=== PATIENT | female | born 1965 | race Two or more races ===

== ENCOUNTER 2025-01-25 08:35 | Inpatient (IN) | payer MEDICARE, MEDICAID ==
[2025-01-22 12:37] LABS: Urine Bacteria None Seen /hpf (None Seen)
[2025-01-22 13:06] LABS: Basophils # (auto) 0 10 ^3/uL (0-0.2); Basophils % (auto) 0.6 % (0.0-2.0); Eosinophils # (auto) 0 10 ^3/uL (0-0.8); Eosinophils % (auto) 0.3 % (0.0-7.0); Hemoglobin 14.7 g/dL (12.2-16.2); Lymphocytes # (auto) 1.6 10 ^3/uL (0.4-5.4); Lymphocytes % (auto) 24.6 % (10.0-50.0); Mean Corpuscular Hemoglobin 30.4 pg (28.0-32.0); Mean Corpuscular Hgb Conc. 34.2 g/dL (32.0-36.0); Monocytes # (auto) 0.5 10 ^3/uL (0-1.3); Monocytes % (auto) 8.2 % (0.0-12.0); Neutrophils # (auto) 4.4 10 ^3/uL (1.6-8.6); Neutrophils % (auto) 66.3 % (37.0-80.0); Platelet Count (auto) 193 10^3/uL (140-450); Red Blood Cells 4.83 10^6/uL (4.0-5.20); Red Cell Distribution Width 14.3 % (11.8-14.3); White Blood Cell 6.6 10^3/uL (4.4-10.8)
[2025-01-22 13:13] LABS: Urine Blood 2+ /uL (Negative); Urine Clarity Turbid (Clear); Urine Color Yellow (Yellow); Urine Mucus FEW (None Seen); Urine Protein, UAD TRACE (Negative); Urine Specific Gravity 1.022 (1.001-1.035); Urine Squamous Epithelial Cell FEW /hpf (<5); Urine Urobilinogen Normal (Negative); Urine WBC 1 /HPF (0-5); Urine pH 5.5 (5.0-9.0)
[2025-01-22 13:23] LABS: INR 1.03 (0.9-1.15); Partial Thromboplastin Time 26.3 SEC (24.5-34.5); Prothrombin Time 10.9 sec (9.3-11.8)
[2025-01-22 13:32] LABS: Alanine Aminotransferase 10 U/L (7-40); Albumin 4.8 g/dL (3.2-4.8); Alkaline Phosphatase 66 U/L (46-116); Anion Gap 6 (5-15); Aspartate Aminotransferase 18 U/L (13-40); BUN/Creatinine Ratio 12.2 (10.0-20.0); Blood Urea Nitrogen 11 mg/dL (9-23); Calcium 10.1 mg/dL (8.7-10.4); Carbon Dioxide 29 mmol/L (20-31); Chloride 106 mmol/L (98-107); Glucose 97 mg/dL (74-106); Potassium 4.2 mmol/L (3.5-5.1); Sodium 141 mmol/L (136-145); Total Protein 7.2 g/dL (5.7-8.2)
[2025-01-22 13:33] LABS: Bilirubin, Total 0.5 mg/dL (0.2-1.0)
[~2025-01-25] VITALS: Ht 162.6 cm; Wt 88.2 kg
[~2025-01-25 08:35] MED LIST: CHOL20007 OR; ESCI1TAB36 PO; FELO5TAB6 GT; KEP500T PO; LEVO25TA6 PO; LORA-1123 PO; PROP60CA34 PO; SIMV40TA18 PO; TRAZ-228 PO
[2025-01-25] MEDS ORDERED: SODIUM CHLORIDE LOCK 40 ML ONE (09:55)
[2025-01-25] MEDS ORDERED: ROCURONIUM 10MG/ML 10ML VIAL IV ONE (09:55)
[2025-01-25] MEDS ORDERED: MIDAZOLAM HCL 2MG/2ML 2ml VIAL (1mg/ml) ONE (09:55)
[2025-01-25] MEDS ORDERED: ONDANSETRON HCL 4 MG/2 ML VIAL ONE (09:55)
[2025-01-25] MEDS ORDERED: DexAMETHasone SOD PHOS 10MG/1ML VIAL INJ ONE (09:55)
[2025-01-25] MEDS ORDERED: KETAMINE 50mg/ML 1ml syringe ONE (09:55)
[2025-01-25] MEDS ORDERED: fentaNYL CITRATE 5 ML ONE (09:55)
[2025-01-25] MEDS ORDERED: fentaNYL CITRATE 100 MCG/2 ML VL ONE ×2 (09:55→13:42)
[2025-01-25] MEDS ORDERED: LIDOCAINE 1% INJ PF 5ML AMP ONE (09:55)
[2025-01-25] MEDS ORDERED: HYDROmorphone HCL 2 MG/ML VL/or syr ONE (09:55)
[2025-01-25] MEDS ORDERED: PROPOFOL 10 MG/ML 20 ML IV ONE (09:55)
[2025-01-25] MEDS ORDERED: LIDOCAINE 2% TOPICAL JELLY 5 ML URJT TOP ONE (09:55)
--- NOTE | 2025-01-25 10:44 | DVHHP2 ---
"Admitting Diagnosis: cervical spinal stenosis with myelo-radiculopathy History of Present Illness Home Meds Reported Medications Cholecalciferol (VITAMIN D3) 2,000 Unit Tab, 5000 UNIT OR DAILY, TAB 01/18/25 Trazodone Hcl (Trazodone Hcl) 100 Mg Tab, 50 MG PO HS, TAB 01/18/25 Lorazepam (Lorazepam) 1 Mg Tab, 0.5 MG PO BID, TAB 01/18/25 Levothyroxine Sodium (Levothyroxine Sodium) 25 Mcg Tab, 25 MCG PO DAILY, TAB 01/18/25 Felodipine (Felodipine ER) 5 Mg Tab, 10 MG GT DAILY, TAB 01/18/25 Propranolol Hcl (Inderal La) 60 Mg Cap, 10 MG PO DAILY, CAP 01/18/25 Escitalopram Oxalate (ESCITALOPRAM OXALATE) 10 Mg Tab, 10 MG PO HS, TAB 01/18/25 Simvastatin (Simvastatin) 40 Mg Tab, 40 MG PO DAILY, TAB 01/18/25 Levetiracetam (KEPPRA TABLET) 500 Mg Tb, 750 MG PO BID, TAB 01/18/25 Neck Pain Radiation: Upper extremity Method of Injury/Prior Factors: Unknown Modifying Factors for Neck Ju: Movement Associated Symptoms of Neck Pa: Numbness in upper extremi, Numbness in fingers, Tingling in upper extremi, Tingling in fingers, Sensory loss, Motor loss Review of Systems Constitutional: No symptom reported Ears, Nose, & Throat: No symptom reported Eyes: No symptom reported Pulmonary/Respiratory: No symptom reported Cardiovascular: No symptom reported Gastrointestinal: No symptom reported Genitourinary: No symptom reported Musculoskeletal: No symptom reported Skin: No symptom reported Psychiatric: No symptom reported Endocrine: No symptom reported Hemotologic/Lymphatic: No symptom reported H&P Exam General Appeara: Well developed, Well nourished, Normal Appearance Head Exam: Normal inspection Neck Exam: Normal inspection, Non-tender, Normal alignment Eye Exam: bilateral eye Normal inspection, bilateral eye PERRL, bilateral eye EOMI Ear Exam: bilateral ear Auricle normal, bilateral ear Canal normal, bilateral ear TM normal Nasal Exam: Normal inspection Mouth: Normal Inspection Pulmonary/Respiratory: Normal inspection, Normal breath sounds, Chest non- tender, Lungs clear Cardiovascular/Chest: Normal inspection, Regular rate, Normal Rhythm Abdominal Exam: Normal bowel sounds, Soft, No tenderness, No hepatospenomegaly, No masses Rectal Exam: Normal inspection Back Exam: Normal inspection Pelvic Exam: Not done, External exam normal, Bimanual exam normal, Speculum exam normal Male Genital Exam: Not done Shoulder Exam: Normal inspection, Non-tender, Normal ROM Elbow/Forearm Exam: Normal inspection, Non-tender, Normal ROM Wrist Exam: Normal inspection, Non-tender, Normal ROM Hand Exam: Normal inspection, Non-tender, Normal ROM Hip exam: Normal inspection, Non-tender, Normal range of motion Knees: bilateral knee non-tender, bilateral knee normal inspection, bilateral knee normal range of motion, bilateral knee no evidence of injury Ankle Exam: bilateral ankle Normal inspection, bilateral ankle Non-tender, bilateral ankle Normal range of motion, bilateral ankle No evidence of injury Foot: bilateral foot non-tender, bilateral foot normal inspection, bilateral foot normal range of motion, bilateral foot no evidence of injury Tendon/ Neuro: Motor deficit, Sensory deficit [employer]ESS[employer] Exam: Normal hearing, Normal speech, PERRL Motor/Sensory: Sensory deficit, Weak motor strength RUE, Weak motor strength LUE, Weak motor strength RLE, Weak motor strength LLE Neuro/Mental St: Alert Appearance: Appropriate appearance, Appropriate insight Eye contact/ Speech: Cooperative, Good eye contact, Normal speech Thoughts/Psych: Normal thought pattern Coordination/Gait: Normal finger->nose, Normal gait, Negative Romberg's sign, Abnormal gait Skin Exam: Normal inspection, Normal color, Warm/dry Lymphatic: Normal inspection Labs/Xrays MRI CERVICAL SPINE CLINICAL HISTORY: NECK PAIN AND POPPING. LBP AND LROM. HX- CERVICAL FUSION AND LUMBAR FUSION. NOCA Comparison: None Technique: Multi planar, multi sequence MR images of the cervical spine without intravenous contrast. FINDINGS: There are postsurgical changes with discectomy and interbody hardware fusion at the C5-C6 and C6-C7 levels. There is nonspecific hyperintense T2 signal abnormality in the left cord at the C5-C6 level. The cervical cord demonstrates normal caliber. The visualized posterior fossa contents appear within normal limits. The craniocervical junction appears unremarkable. The cervical vertebral bodies demonstrate normal height and marrow signal. The sagittal alignment is anatomic. There is multilevel disc desiccation. There is disc space narrowing at C4-C5. At C2-C3 there is mild right facet arthropathy. There is no canal or significant foraminal stenosis. At C3-C4 there is mild disc bulge. There is moderate left facet arthropathy. There is no canal stenosis. There is moderate left foraminal stenosis. At C4-C5 there is posterior disc osteophyte complex and bilateral uncovertebral arthropathy. There is mild facet arthropathy. There is no significant spinal canal stenosis. There is moderate to severe left and moderate right foraminal stenosis. At C5-C6 there is anterior and interbody hardware fusion. There is no canal stenosis. There is prominent left uncovertebral spurring resulting in moderate to severe left foraminal stenosis. At C6-C7 there is anterior and interbody hardware fusion. There is bilateral uncovertebral spurring, right- [id number]. There is no canal stenosis. There is moderate right foraminal stenosis. At C7-T1 there is minimal disc bulge without canal or foraminal stenosis. [facility] [id number], [address] [place], [place] [address]LVD CERVICAL SPINE CLINICAL HISTORY: NECK PAIN AND POPPING. LBP AND LROM. HX- CERVICAL FUSION AND LUMBAR FUSION. NOCA Comparison: None Technique: Multi planar, multi sequence MR images of the cervical spine without intravenous contrast. FINDINGS: There are postsurgical changes with discectomy and interbody hardware fusion at the C5-C6 and C6-C7 levels. There is nonspecific hyperintense T2 signal abnormality in the left cord at the C5-C6 level. The cervical cord demonstrates normal caliber. The visualized posterior fossa contents appear within normal limits. The craniocervical junction appears unremarkable. The cervical vertebral bodies demonstrate normal height and marrow signal. The sagittal alignment is anatomic. There is multilevel disc desiccation. There is disc space narrowing at C4-C5. At C2-C3 there is mild right facet arthropathy. There is no canal or significant foraminal stenosis. At C3-C4 there is mild disc bulge. There is moderate left facet arthropathy. There is no canal stenosis. There is moderate left foraminal stenosis. At C4-C5 there is posterior disc osteophyte complex and bilateral uncovertebral arthropathy. There is mild facet arthropathy. There is no significant spinal canal stenosis. There is moderate to severe left and moderate right foraminal stenosis. At C5-C6 there is anterior and interbody hardware fusion. There is no canal stenosis. There is prominent left uncovertebral spurring resulting in moderate to severe left foraminal stenosis. At C6-C7 there is anterior and interbody hardware fusion. There is bilateral uncovertebral spurring, right- [id number]. There is no canal stenosis. There is moderate right foraminal stenosis. At C7-T1 there is minimal disc bulge without canal or foraminal stenosis. [facility] [address], [address] [place] [address] | Confidential information intended for patient chart only Page 2 of 2 IMPRESSION: 1. Postsurgical changes in the cervical spine with discectomy and anterior interbody hardware fusion at the C5- C6 and C6-C7 levels. 2. There is nonspecific hyperintense T2 signal abnormality in the left cervical cord at the C5-C6 level. This May relate to compressive myelomalacia. Demyelinating disease in the appropriate clinical setting is not entirely excluded. 3. Degenerative changes of the unfused levels in the cervical spine as described by levels above. HS: | Confidential information intended for patient chart only Page 2 of 2 IMPRESSION: 1. Postsurgical changes in the cervical spine with discectomy and anterior interbody hardware fusion at the C5- C6 and C6-C7 levels. 2. There is nonspecific hyperintense T2 signal abnormality in the left cervical cord at the C5-C6 level. This May relate to compressive myelomalacia. Demyelinating disease in the appropriate clinical setting is not entirely excluded. 3. Degenerative changes of the unfused levels in the cervical spine as described by levels above. HS: Labs Test 01/22/25 12:25 Range/Units White Blood Count 6.6 4.4-10.8 10^3/uL Red Blood Count 4.83 4.0-5.20 10^6/uL Hemoglobin 14.7 12.2-16.2 g/dL Hematocrit 43.0 36.0-46.0 % Mean Corpuscular Volume 89.0 80.0-100.0 fL Mean Corpuscular Hemoglobin 30.4 28.0-32.0 pg Mean Corpuscular Hemoglobin Concent 34.2 32.0-36.0 g/dL Red Cell Distribution Width 14.3 11.8-14.3 % Platelet Count 193 140-450 10^3/uL Mean Platelet Volume 7.7 6.9-10.8 fL Neutrophils (%) (Auto) 66.3 37.0-80.0 % Lymphocytes (%) (Auto) 24.6 10.0-50.0 % Monocytes (%) (Auto) 8.2 0.0-12.0 % Eosinophils (%) (Auto) 0.3 0.0-7.0 % Basophils (%) (Auto) 0.6 0.0-2.0 % Neutrophils # (Auto) 4.4 1.6-8.6 10 ^3/uL Lymphocytes # (Auto) 1.6 0.4-5.4 10 ^3/uL Monocytes # (Auto) 0.5 0-1.3 10 ^3/uL Eosinophils # (Auto) 0 0-0.8 10 ^3/uL Basophils # (Auto) 0 0-0.2 10 ^3/uL Nucleated Red Blood Cells 0.0 % Prothrombin Time 10.9 9.3-11.8 sec Prothrombin Time INR 1.03 0.9-1.15 Activated Partial Thromboplast Time 26.3 24.5-34.5 SEC Urine Color Yellow Yellow Urine Clarity Turbid H Clear Urine pH 5.5 5.0-9.0 Urine Specific [place] 1.022 1.001-1.035 Urine Protein Trace H Negative Urine Ketones Negative Negative Urine Blood 2+ H Negative /uL Urine Nitrite Negative Negative Urine Bilirubin Negative Negative Urine Urobilinogen Normal Negative mg/dL Urine Leukocyte Esterase Negative Negative /uL Urine RBC 17 0 - 4 /hpf Urine Microscopic WBC 1 0-5 /HPF Urine Squamous Epithelial Cells Few <5 /hpf Urine Calcium Oxalate Crystals Few None Seen Urine Bacteria None seen None Seen /hpf Urine Mucus Few None Seen Urine Glucose Normal Normal mg/dL Sodium Level 141 136-145 mmol/L Potassium Level 4.2 3.5-5.1 mmol/L Chloride Level 106 98-107 mmol/L Carbon Dioxide Level 29 20-31 mmol/L Anion Gap 6 5-15 Blood Urea Nitrogen 11 9-23 mg/dL Creatinine 0.90 0.550-1.02 mg/dL Glomerular Filtration Rate Calc 73 >90 mL/min BUN/Creatinine Ratio 12.2 10.0-20.0 Serum Glucose 97 74-106 mg/dL Calcium Level 10.1 8.7-10.4 mg/dL Total Bilirubin 0.5 0.2-1.0 mg/dL Aspartate Amino Transferase (AST) 18 13-40 U/L Alanine Aminotransferase (ALT) 10 7-40 U/L Alkaline Phosphatase 66 46-116 U/L Total Protein 7.2 5.7-8.2 g/dL Albumin 4.8 3.2-4.8 g/dL Assessment/Plan Primary Diagnosis cervical myeloradiculopathy Plan admit for elective spine surgery Plan discussed with: Patient HARJINDER NAJERA MD January 25, 2025 10:44"
[2025-01-25] MEDS ORDERED: HYDROmorphone HCL 2 MG/ML VL/or syr IV PRN (11:00)
--- NOTE | 2025-01-25 11:09 | POSTOP ---
Post-Operative Note Post-Operative Note Preop Diagnosis cervical spinal stenosis with myelo-radiculopathy Postop Diagnosis: cervical spinal stenosis with myelo-radiculopathy Operation performed Revision c3-6 anterior cervical discectomy and fusion Specimen none Anesthesia: General Anesthesiologist: DR Hansen Blood Loss(fluid mgmt) see anesthesia record Tourniquet Time none Surgeon DR Yo Dos Santos Curator [employer] Christin Garcia CARGO INSPECTOR Complications & Mgmt none Additional Remarks Disposition: -Pending -Discharge RX: Pending -Follow up appointment: with Dr Dos Santos on your scheduled postoperative appointment date and time [id number] [place] [address] -Pain: - IV pain meds post op day 1, with PO supplementation, goal is to progress weaning off IV medications and control pain with PO only. morphine 1mg q 4 hours (PAIN 7-10) - P.O. analgesics:Tylenol 650MG (PAIN 1-3) [place] 10/325 mg (PAIN 4-6) - Muscle relaxers scheduled administration. This is a beneficial medications for the incisional pain as it is mostly related to muscle spasms. Flexeril 10 mg TID - Cepacol throat lozenges as needed for sore throat -Antibiotics Operative recommendations: -Postoperative dose:-Post operative antibiotics cefazolin 1 g IV piggyback every 8 hours x 48 hours total of 6 doses -DVT PPX: -Hold all chemical DVT/ blood thinners for 14 days postoperatively -use mechanical DVT PPX such as SCD's, ambulation -Activity: -Pending PT evaluation and patients progression -Sit at side of bed for meals -Goal: Ambulate independently and safely (may use assistive devices if needed) -Brace: - Saco collar for comfort, -Medical Therapy goals: -Afebrile- Patient may develop a expected post operative fever by day 2-3, this may not be accompanied with a elevation in WBC. if fever develops: Acetaminophen for fever. Albuterol nebulizer Tx every 12 hours for 24 hours to facilitate adequate lung expansion and prevent development of atelectasis. -Euglycemic: bloods sugars under 130mmol/L for optimal healing -Normotensive: Avoid events of hypertension. This helps to keep post operative healing intact and avoids destabilization of beneficial hemostatic coagulation. Drains -Bulb drains: record output and characteristics of the drainage EVERY 6 HOURS- if there is no output indicate this by documenting 0ml output in note.. These will be to thumbprint compression unless otherwise ordered. Record output as well as amount in a note at least every 6 houtrs- more if indicated. Wound drainage is described by type, color, amount, and odor. Drainage can be 1 serous: Clear and thin, may be present in healing healthy wound. 2 serosanguineous containing blood may also be present and healthy healing wound 3. Sanguinous primarily blood 4. Purulent this is thick, white, and pus like. It may be indicated to give of a infection and should constitute a call to the provider immediately with the plan that the sample should be cultured. -Mosley: -DC in OR -Dressings -Anterior cervical patients: Initial surgical dressing may be reinforced if needed. If there is excessive bleeding, leaking, drainage in the bulb drain notify provider -Bowel management: -Colace 100mg bid -Diet: -Clear liquid diet and advance as patient tolerates within dietary limitations ( example: diabetic, Cardiac) -Incentive Spirometer: -10 x hour while awake, RN please educate and observe repeat demonstration, have IS at bedside POD #1 -X-rays: - none indicated at this time -Consults: -Physical Therapy evaluation, treatment recommendations, and discharge recommendations Call with questions Himanshu Garcia ACNCathie- Orthopaedic Spine Surgery nurse practitioner For Dr Blayne Dos Santos Patient was examined, chart reviewed, labs evaluated, and diagnostic studies and findings analyzed. Case was discussed with Dr. Yo Dos Santos who formulated the plan of care. This medical document was created using an electronic medical record system with [employer] dictation system. Although this document has been carefully reviewed, there might still be some phonetic and typographical errors. These areas are purely typographical due to imperfections of the software programs, and do not reflect any compromise in the patient's medical care. Date 01/25/25 Time 11:04 Plan Additional comments: Disposition: -Pending -Discharge RX: Pending -Follow up appointment: with Dr Dos Santos on scheduled follow up appointment [id number] [place] [id number] -Pain: - IV pain meds post op day 1, with PO supplementation, goal is to progress weaning off IV medications and control pain with PO only. morphine 1mg q 4 hours (PAIN 7-10) - P.O. analgesics:Tylenol 650MG (PAIN 1-3) [place] 10/325 mg (PAIN 4-6) - Muscle relaxers scheduled administration. This is a beneficial medications for the incisional pain as it is mostly related to muscle spasms. Flexeril 10 mg TID - Cepacol throat lozenges as needed for sore throat -Antibiotics Operative recommendations: -Postoperative dose:-Post operative antibiotics cefazolin 1 g IV piggyback every 8 hours x 48 hours total of 6 doses -DVT PPX: -Hold all chemical DVT/ blood thinners for 14 days postoperatively -use mechanical DVT PPX such as SCD's, ambulation -Activity: -Pending PT evaluation and patients progression -Sit at side of bed for meals -Goal: Ambulate independently and safely (may use assistive devices if needed) -Brace: - [place]aco collar for comfort, if patient desires to use it during mobility -Medical Therapy goals: -Afebrile- Patient may develop a expected post operative fever by day 2-3, this may not be accompanied with a elevation in WBC. if fever develops: Acetaminophen for fever. Albuterol nebulizer Tx every 12 hours for 24 hours to facilitate adequate lung expansion and prevent development of atelectasis. -Euglycemic: bloods sugars under 130mmol/L for optimal healing -Normotensive: Avoid events of hypertension. This helps to keep post operative healing intact and avoids destabilization of beneficial hemostatic coagulation. Drains -Bulb drains: record output and characteristics of the drainage EVERY 6 HOURS- if there is no output indicate this by documenting 0ml output in note.. These will be to thumbprint compression unless otherwise ordered. Record output as well as amount in a note at least every 6 houtrs- more if indicated. Wound drainage is described by type, color, amount, and odor. Drainage can be 1 serous: Clear and thin, may be present in healing healthy wound. 2 serosanguineous containing blood may also be present and healthy healing wound 3. Sanguinous primarily blood 4. Purulent this is thick, white, and pus like. It may be indicated to give of a infection and should constitute a call to the provider immediately with the plan that the sample should be cultured. -Melany: -DC in OR -Dressings -Anterior cervical patients: Initial surgical dressing may be reinforced if needed. If there is excessive bleeding, leaking, drainage in the bulb drain notify provider -Bowel management: -Colace 100mg bid -Diet: -Clear liquid diet and advance as patient tolerates within dietary limitations ( example: diabetic, Cardiac) -Incentive Spirometer: -10 x hour while awake, RN please educate and observe repeat demonstration, have IS at bedside POD #1 -X-rays: - none indicated at this time -Consults: -Physical Therapy evaluation, treatment recommendations, and discharge recommendations Call with questions Himanshu Garcia ACNP- Orthopaedic Spine Surgery nurse practitioner For Dr Blayne Dos Santos Patient was examined, chart reviewed, labs evaluated, and diagnostic studies and findings analyzed. Case was discussed with Dr. Yo Dos Santos who formulated the plan of care. This medical document was created using an electronic medical record system with [employer] dictation system. Although this document has been carefully reviewed, there might still be some phonetic and typographical errors. These areas are purely typographical due to imperfections of the software programs, and do not reflect any compromise in the patient's medical care. CHRISTIN GARCIA NP January 25, 2025 11:09
[2025-01-25] MEDS ORDERED: THROAT LOZENGES(CEPASTAT) MT PRN (11:15)
[2025-01-25] MEDS ORDERED: SUGAMMADEX 200mg/2ml Vial (100MG/ML) IV ONE ×2 (14:01→14:13)
[2025-01-25 14:25] VITALS: O2SAT 97
[2025-01-25] MEDS ORDERED: ONDANSETRON HCL 4 MG/2 ML VIAL IV PRN (14:30)
[2025-01-25] MEDS ORDERED: MORPHINE SULFATE INJ 2 MG/ml SYRG IV PRN ×2 (14:30)
[2025-01-25] MEDS ORDERED: NITROGLYCERIN 0.4 MG SL TAB SL PRN (14:30)
[2025-01-25] MEDS: HYDROmorphone HCL 2 MG/ML VL/or syr IV PRN (14:35)
[2025-01-25] MEDS: ceFAZolin 2 GM/D5W50ml 50 ML IV ONE (14:41)
[2025-01-25] MEDS: TRANEXAMIC ACID 20 ML ONE (14:42)
[2025-01-25] MEDS: HYDROmorphone HCL 2 MG/ML VL/or syr ONE (14:43)
[2025-01-25] MEDS: levoFLOXacin 500MG 100 ML IV ONE (14:43)
--- NOTE | 2025-01-25 14:45 | DVHOP2 ---
Operative Report - 2 Report Details Date: 01/25/25 Preop Diagnosis: cervical spinal stenosis with myelo-radiculopathy Postop Diagnosis: cervical spinal stenosis with myelo-radiculopathy Surgeon: Yo Najera MD Hair Clipper Power: Christin linares NP Anesthesiologist: nadiya Anesthesia: General Consent: The patient was informed of the risks and benefits of the procedure. These include but are not limited to complications of anesthesia, postoperative infection, incomplete relief of symptoms, recurrence of symptoms, damage to blood vessels, nerves and tendons, deep venous thrombosis, pulmonary embolism and possible need for repeat surgery in the future. Name of Procedure Performed see detailed note Procedure Details Procedure Details: Procedure Details: Pre Op Diagnosis: Cervical Degenerative Disk Disease and Severe Spinal Stenosis with severe cord signal changes Causing incapacitating neck pain, myelopathy/radiculopathy and progressive neurologic deficit Post Op Diagnosis: Cervical Degenerative Disk Disease and Spinal Stenosis with severe cord signal changes Causing incapacitating neck pain, myelopathy/ radiculopathy and progressive neurologic deficit Procedure: Cervical 3 to 4 anterior cervical discectomy with Cervical 3-4 foraminotomies and facetectomies to decompression the spinal canal and Cervical 4 nerve roots Cervical 4 to 5 anterior cervical discectomy with Cervical 4-5 foraminotomies and facetectomies to decompression the spinal canal and Cervical 5 nerve roots Cervical 3-5 anterior cervical Fusion Cervical 3-5 anterior cervical instrumentation with freestanding cages Cervical 3-4 placement of allograft prosthetic device Cervical 4-5 placement of allograft prosthetic device ICD 10 code: M48.02: Spinal stenosis, cervical region M50.02: Cervical disc disorder with myelopathy, mid-cervical region CPT code: 79067,[id number] Surgeon: Yo Najera MD Anesthesia: General Assist: Christin Linares NP Fluids and EBL: see anesthesia note Procedure Note: The patient was seen in the Pre-anesthesia Care Unit and the site of the incision was initialed by me with a felt tipped marker. All questions by the patient were answered to the satisfaction of the patient and the chart was reviewed. The patient was taken to the operating room and placed supine on the [facility] Flat top table. General anesthesia was induced. Neuromonitoring leads were placed. A rolled towel was placed between the shoulder blades to hyperextend out the chest which will allow better exposure of the cervical spine. Halter traction to 10 pounds was placed. The arms were padded and adducted to the patients side making sure all pulses in the hands were present. Tape traction was undertaken on the shoulders to give us better radiographic exposure of the distal cervical spine. A gel-pad was placed under the occiput and 5 degrees of extension was placed on the neck without adverse effects to the patient. The anterior neck was prepped and draped. Pre-operative antibiotics were given 30 minutes prior to the start of the procedure. A c-arm fluoroscope was used to naveen out the incision site. At this time, a time out was taken per usual protocol. Next an incision was made through the skin with a 15 blade scalpel through the subcutaneous tissue down to the platysma. Self-retainers were placed. The platysma was incised along the longitudinal border with a Metzenbaum scissors. Blunt dissection was made through the deep cervical and pre-tracheal fascia taking care to protect the carotid sheath laterally and the Trachea/esophagus medially. The dissection was carried down to the prevertebral fascia. Any crossing vessels were ligated using a vascular clip or coagulated with a bovie. An esophageal retractor was next used to retract the trachea/esophagus and a bent [address] through the anterior annulus of the cervical disk and a lateral C-arm fluoroscopic image was taken to confirm that we were at the correct level. Next, bovie electrocautery was used to expose the bones of cervical 3,4,5, and bipolar electrocautery was used to lift up the Longus colli and capitus muscles. Black-Belt Self Retainers were used to retract the longus colli and capitus muscles bilaterally as well as the trachea/esophagus to the right and the carotid sheath to the left. Smooth thin Black-Belt retractors were placed proximally and distally and a needle was placed again in the anterior annulus of the disk and an image taken to confirm the correct level. Next, straight and curved curettes removed the remainder of the disks all the way down to the posterior longitudinal ligament. Carefully, a Kerison number one rongeur incised the posterior longitudinal ligament at the lateral end of the above disks and using a micro, blunt tip nerve hook to separate the posterior longitudinal ligament from the dura, alternating 1 mm and 2 mm Kerison rongeurs removed the posterior longitudinal ligament. Next, Kerison 1mm and 2 mm rongeurs were alternated to get under the uncinate processes and undercut them to perform foraminotomies and facetectomies at the cervical 3/4 and 4/5 levels to decompress the central canal and cervical 4,5 nerve roots. Next the c-arm fluoroscope was wheeled into the field and a lateral image was obtained. Increasing size graft trials were used starting at a 5 mm thick size until the proper tension in the disk space and height oriental orthodox obtained. We then placed final free standing cages at C3/4 and 4/5. Both were 7mm in thickness. Satisfactory placement was confirmed in the AP and lateral views using a C-arm fluoroscope. Copious irrigation of the wound with sterile saline and all bleeding was controlled before closure initiated. At this point, a [address] Yor[address] Drain was place deep to the Platysma muscle and the Platysma was approximated with one interrupted 0-Vicryl suture. The subcutaneous tissue was closed with interrupted 2-0 vicryl sutures and the skin was closed with brittany. Sterile dressings were placed and a cervical collar placed, the patient extubated, transferred to the stretcher and taken to the Recovery Room in unremarkable condition. I had originally also consented to possibly do a revision of the C5/6 anterior discectomy and fusion but the bone graft was rock solid and it would have been detrimental to try to dissect through this area. IF in the event there are residual issues post operatively from these cord signal changes that were already present before today's case, the patient would be a good candidate for a cervical laminectomy. Condition Stable Disposition Still a Patient YO NAJERA MD January 25, 2025 14:45
[2025-01-25] MEDS: KETOROLAC TROMETH 30 MG/ML 1ML VIAL IV ONE (14:53)
[2025-01-25] MEDS ORDERED: ACETAMINOPHEN IV 100 ML IV ONE (15:10)
[2025-01-25] MEDS: ACETAMINOPHEN IV 1000 MG/100ML (10MG/ML) IV ONE (15:12)
--- NOTE | 2025-01-25 15:28 | DVH ---
FLUOROSCOPY TIME: 6.3 seconds TECHNIQUE: Intraoperative radiographs of the cervical spine were obtained. COMPARISON: None FINDINGS: Refer to intraoperative report for further evaluation. IMPRESSION: Refer to intraoperative report for further evaluation.
[2025-01-25 18:42] VITALS: BP 132/53; PULSE 74; RESP 18; TEMP 98; O2SAT 94
[2025-01-25 18:47] VITALS: BP 132/53; PULSE 74; RESP 18; TEMP 98; O2SAT 94
[2025-01-25] MEDS: HYDROcodone-ACET 10/325MG TAB PO PRN (18:50)
[2025-01-25] MEDS ORDERED: LORA-655 PO (21:18)
[2025-01-25] MEDS: DOCUSATE SOD 100 MG CAP PO SCH (21:36)
[2025-01-25] MEDS: CYCLOBENZAPRINE HCL 10 MG TAB PO SCH (21:36)
[2025-01-25] MEDS: ceFAZolin 1GM/50ML 50 ML IV SCH (21:37)
[2025-01-25] MEDS: D5W/SOD CHLO 0.9% 1,000 ML IV SCH (21:43)
[2025-01-26] MEDS: METOCLOPRAMIDE HCL 5MG/ml INJ 2ml VIAL IV ONE (05:57)
[2025-01-26 09:00] VITALS: BP 140/69; PULSE 66; RESP 18; TEMP 98.5; O2SAT 100
[2025-01-26] MEDS: ACETAMINOPHEN 325 MG TAB PO PRN (09:22)
[2025-01-26] MEDS ORDERED: HYDROmorphone HCL 2 MG TAB PO PRN (11:30)
--- NOTE | 2025-01-26 11:34 | DVHPN2 ---
Progress Note - Surgical Date Seen: January 26, 2025 Post op day Post op day: 1 Subjective Patient reports: Other (Patient currently upset about a staff member and is having anxiety, she is having muscle spasms and is uncomfortable. Preoperative symptoms "might " have improved unable to tell right now) Review of Systems: HEENT:Normal, CVS:Normal, RESPIRATORY:Abnormal (patient is wheezing, on O@), GI:Normal, :Normal, MSK:Normal, NEURO:Normal Objective Vital signs Vital Sign Date Time Temp Pulse Resp B/P (MAP) Pulse Ox O2 Delivery O2 Flow Rate FiO2 01/26/25 09:00 98.5 66 18 140/69 (92) 100 98.5 01/25/25 22:58 Nasal Cannula* 2 28 Total Intake and Output 01/25/25 01/25/25 01/26/25 15:00 23:00 07:00 Intake Total 200 ml 50 ml 1500 ml Output Total 10 ml Balance 200 ml 50 ml 1490 ml Medications Current Medications Medications Dose Ordered Sig/Felipa Route Start Time Stop Time Status Last Admin Dose Admin Throat Lozenges 1 joe Q2HP PRN MT 01/25/25 11:15 Dextrose/Sodium Chloride 1,000 ml @ 100 mls/hr Q10H IV 01/25/25 14:30 01/26/25 00:30 100 MLS/HR Ondansetron HCl 4 mg Q4HP PRN IV 01/25/25 14:30 Acetaminophen 650 mg Q6HP PRN PO 01/25/25 14:30 01/26/25 09:22 650 MG Acetaminophen/ Hydrocodone Bitart 1 tab Q6HP PRN PO 01/25/25 14:30 01/26/25 02:30 1 TAB Morphine Sulfate 1 mg Q4HP PRN IV 01/25/25 14:30 Hold Cyclobenzaprine HCl 10 mg TID PO 01/25/25 22:00 01/26/25 05:04 10 MG Docusate Sodium 100 mg BID PO 01/25/25 22:00 01/25/25 21:36 100 MG Cefazolin Sodium 50 ml @ 100 mls/hr Q8HR IV 01/25/25 22:00 01/27/25 14:29 01/26/25 05:04 100 MLS/HR Nitroglycerin 0.4 mg Q5MINP PRN SL 01/25/25 14:30 Morphine Sulfate 2 mg Q30M PRN IV 01/25/25 14:30 Hold Laboratory Laboratory Tests 01/22/25 12:25 Test 01/22/25 12:25 Range/Units Serum Glucose 97 74-106 mg/dL Examination: GENERAL:Normal, HEENT:Normal, NECK:Normal (surgical site is well apporoximated wth brittany, drain removed), LUNGS:Abnormal (wheezing), CVS:Normal, ABDOMEN:Normal, MSK:Normal, SKIN:Normal (no infectious drainage from surgical site. ), NEURO:Normal, :Normal Problem List/Assessment/Plan Problems: (1) Muscle spasms of neck (2) Postoperative pain after spinal surgery Assessment and Plan Disposition: -Pending -Discharge RX: Pending -Follow up appointment: with Dr Dos Santos on your scheduled postoperative appointment date and time [id number] [facility] [address] [place] [id number] -Pain: - IV pain meds post op day 1, with PO supplementation, goal is to progress weaning off IV medications and control pain with PO only. morphine 1mg q 4 hours (PAIN 7-10)- held due to nausea - P.O. analgesics:Tylenol 650MG (PAIN 1-3) Dilaudid tablet 2 mg - Muscle relaxers scheduled administration. This is a beneficial medications for the incisional pain as it is mostly related to muscle spasms.Robaxin 350mg TID - Cepacol throat lozenges as needed for sore throat -Antibiotics Operative recommendations: -Postoperative dose:-Post operative antibiotics cefazolin 1 g IV piggyback every 8 hours x 48 hours total of 6 doses -DVT PPX: -Hold all chemical DVT/ blood thinners for 14 days postoperatively -use mechanical DVT PPX such as SCD's, ambulation -Activity: -Pending PT evaluation and patients progression -Sit at side of bed for meals -Goal: Ambulate independently and safely (may use assistive devices if needed) -Medical Therapy goals: -Afebrile- Patient may develop a expected post operative fever by day 2-3, this may not be accompanied with a elevation in WBC. if fever develops: Acetaminophen for fever. Albuterol nebulizer Tx every 12 hours for 24 hours to facilitate adequate lung expansion and prevent development of atelectasis. -Euglycemic: bloods sugars under 130mmol/L for optimal healing -Normotensive: Avoid events of hypertension. This helps to keep post operative healing intact and avoids destabilization of beneficial hemostatic coagulation. -Dressings -Anterior cervical patients: dressing may be changed by nursing -Bowel management: -Colace 100mg bid -Diet: -Clear liquid diet and advance as patient tolerates within dietary limitations ( example: diabetic, Cardiac) -Incentive Spirometer: -10 x hour while awake, RN please educate and observe repeat demonstration, have IS at bedside POD #1 -X-rays: - none indicated at this time -Consults: -Physical Therapy evaluation, treatment recommendations, and discharge recommendations Call with questions Himanshu Alexis ACNP- Orthopaedic Spine Surgery nurse practitioner For Dr Blayne Dos Santos Patient was examined, chart reviewed, labs evaluated, and diagnostic studies and findings analyzed. Case was discussed with Dr. Yo Dos Santos who formulated the plan of care. This medical document was created using an electronic medical record system with [employer] dictation system. Although this document has been carefully reviewed, there might still be some phonetic and typographical errors. These areas are purely typographical due to imperfections of the software programs, and do not reflect any compromise in the patient's medical care. My Orders My Orders Orders - CAT ALEXIS NP Procedure Category Date Status Time Admit ADMIT 01/25/25 Transmitted 14:30 Lorazepam Tablet PHA 01/26/25 Verified (Ativan Tablet) 11:30 Hydromorphone Tablet PHA 01/26/25 Verified (Dilaudid Tablet) 11:30 Methocarbamol PHA 01/26/25 Verified (Robaxin) 14:00 Plan discussed with Plan discussed with: Patient, Other Visit Coding Surgery Date of Service if different f: January 26, 2025 Billing Provider: CAT ALEXIS NP Surgery Visit Codes: NOT BILLABLE CAT ALEXIS NP January 26, 2025 11:34
--- NOTE | 2025-01-26 12:30 | DVH ---
EXAM: XY CHEST PORTABLE Indication: wheezing Technique: Single frontal view of the chest was obtained Comparison: None FINDINGS: Lines and Tubes: None Lungs: No focal consolidation. Pleura: No effusion. No pneumothorax. Cardiomediastinal contours: Unremarkable Bones: No acute osseous abnormality. IMPRESSION: No acute cardiopulmonary disease.
[2025-01-26 13:00] VITALS: BP 132/79; PULSE 77; RESP 18; TEMP 98.3; O2SAT 92
[2025-01-26] MEDS: ALBUTEROL SULF 2.5 MG/0.5ML(0.5%) NEB SOLN NEB ONE (13:25)
[2025-01-26 13:26] VITALS: PULSE 84; RESP 18; O2SAT 94
[2025-01-26 13:30] VITALS: PULSE 78; RESP 18; O2SAT 100
[2025-01-26] MEDS: METHOCARBAMOL 500 MG TAB PO ONE (13:51)
[2025-01-26 16:51] VITALS: BP 157/67; PULSE 77; RESP 18; TEMP 99.3; O2SAT 89
[2025-01-26] MEDS: OXYCODONE W/ ACETAMINOPHEN 5/325MG TABLET PO PRN (17:09)
[2025-01-26 21:00] VITALS: BP 146/59; PULSE 69; RESP 19; TEMP 98.3; O2SAT 92
[2025-01-27 01:00] VITALS: BP 167/72; PULSE 81; RESP 19; TEMP 98.3; O2SAT 94
[2025-01-27] MEDS: LORazepam 0.5 MG TAB PO PRN (01:01)
[2025-01-27 05:00] VITALS: BP 165/72; PULSE 71; RESP 18; TEMP 98; O2SAT 92
--- NOTE | 2025-01-27 07:01 | DVHPN2 ---
Progress Note - Surgical Date Seen: January 27, 2025 Post op day Post op day: 2 Subjective Patient reports: No new complaints, Feels better, Other (Patient states her blood pressure is slightly elevated because she is feeling very anxious being in the hospital she is requesting to go home so she can take her medications BUN her home environment which will help calm her down) Review of Systems: HEENT:Normal, CVS:Normal, RESPIRATORY:Abnormal (Patient requiring supplemental oxygen, extensive history of COPD), GI:Normal, :Normal, MSK:Normal, NEURO:Normal Objective Vital signs Vital Sign Date Time Temp Pulse Resp B/P (MAP) Pulse Ox O2 Delivery O2 Flow Rate FiO2 01/27/25 05:00 98.0 71 18 165/72 (103) 92 98.0 01/26/25 20:00 Nasal Cannula* 2 28 Total Intake and Output 01/26/25 01/26/25 01/27/25 15:00 23:00 07:00 Intake Total 350 ml 1500 ml Balance 350 ml 1500 ml Medications Current Medications Medications Dose Ordered Sig/Felipa Route Start Time Stop Time Status Last Admin Dose Admin Throat Lozenges 1 joe Q2HP PRN MT 01/25/25 11:15 Dextrose/Sodium Chloride 1,000 ml @ 100 mls/hr Q10H IV 01/25/25 14:30 01/26/25 20:30 100 MLS/HR Ondansetron HCl 4 mg Q4HP PRN IV 01/25/25 14:30 Acetaminophen 650 mg Q6HP PRN PO 01/25/25 14:30 01/26/25 09:22 650 MG Docusate Sodium 100 mg BID PO 01/25/25 22:00 01/26/25 21:26 100 MG Cefazolin Sodium 50 ml @ 100 mls/hr Q8HR IV 01/25/25 22:00 01/27/25 14:29 01/27/25 05:09 100 MLS/HR Nitroglycerin 0.4 mg Q5MINP PRN SL 01/25/25 14:30 Lorazepam 0.5 mg Q8HP PRN PO 01/26/25 11:30 01/27/25 01:01 0.5 MG Hydromorphone HCl 2 mg Q4HP PRN PO 01/26/25 11:30 Cancel Carisoprodol 350 mg TID PO 01/27/25 07:00 Oxycodone/ Acetaminophen 2 tab Q4HPRN PRN PO 01/27/25 08:00 Levetiracetam 750 mg BID PO 01/27/25 10:00 UNV Levothyroxine Sodium 25 mcg DAILY PO 01/27/25 10:00 UNV Patient Own Medication 10 mg DAILY GT 01/27/25 10:00 UNV Patient Own Medication 40 mg DAILY PO 01/27/25 10:00 UNV Laboratory Laboratory Tests 01/22/25 12:25 Test 01/22/25 12:25 Range/Units Serum Glucose 97 74-106 mg/dL Examination: GENERAL:Normal, HEENT:Normal, NECK:Normal (Left anterior surgical site well approximated with brittany, minimal residual drainage no swelling, airway patent patient tolerating food and drink.), LUNGS:Normal, CVS:Normal, ABDOMEN:Normal, MSK:Normal, SKIN:Normal (Surgical site well approximated with brittany no signs of infection), NEURO:Normal (Patient able to ambulate 100 ft with physical therapy using a walker), :Normal Problem List/Assessment/Plan Problems: (1) Muscle spasms of neck (2) Postoperative pain after spinal surgery Assessment and Plan Patient was able to get up with physical therapy yesterday and ambulate 100 ft using a walker IV fluid was held due to elevated blood pressure-orders given Patient states her hypertension is related to her anxiety, she no longer wants to be in the hospital we will be more comfortable at home with her own restroom own bed and her own medications to be monitored. Muscle relaxer and oral analgesics on board Plan to discharge patient today Disposition: Home -Discharge RX: Pain medication, muscle relaxers and stool softener sent to patient's pharmacy of choice -Follow up appointment: with Dr Dos Santos on your scheduled postoperative appointment date and time [id number] [facility] [address] [place] [address] -Pain: - IV pain meds post op day 1, with PO supplementation, goal is to progress weaning off IV medications and control pain with PO only. morphine 1mg q 4 hours (PAIN 7-10)- held due to nausea - P.O. analgesics:Tylenol 650MG (PAIN 1-3) Dilaudid tablet 2 mg - Muscle relaxers scheduled administration. This is a beneficial medications for the incisional pain as it is mostly related to muscle spasms.Robaxin 350mg TID - Cepacol throat lozenges as needed for sore throat -Antibiotics Operative recommendations: -Postoperative dose:-Post operative antibiotics cefazolin 1 g IV piggyback every 8 hours x 48 hours total of 6 doses -DVT PPX: -Hold all chemical DVT/ blood thinners for 14 days postoperatively -use mechanical DVT PPX such as SCD's, ambulation -Activity: -Pending PT evaluation and patients progression -Sit at side of bed for meals -Goal: Ambulate independently and safely (may use assistive devices if needed) -Medical Therapy goals: -Afebrile- Patient may develop a expected post operative fever by day 2-3, this may not be accompanied with a elevation in WBC. if fever develops: Acetaminophen for fever. Albuterol nebulizer Tx every 12 hours for 24 hours to facilitate adequate lung expansion and prevent development of atelectasis. -Euglycemic: bloods sugars under 130mmol/L for optimal healing -Normotensive: Avoid events of hypertension. This helps to keep post operative healing intact and avoids destabilization of beneficial hemostatic coagulation. -Dressings -Anterior cervical patients: dressing may be changed by nursing -Bowel management: -Colace 100mg bid -Diet: -Clear liquid diet and advance as patient tolerates within dietary limitations ( example: diabetic, Cardiac) -Incentive Spirometer: -10 x hour while awake, RN please educate and observe repeat demonstration, have IS at bedside POD #1 -X-rays: - none indicated at this time -Consults: -Physical Therapy evaluation, treatment recommendations, and discharge recommendations Call with questions Himanshu Alexis ACNP- Orthopaedic Spine Surgery nurse practitioner For Dr Blayne Dos Santos Patient was examined, chart reviewed, labs evaluated, and diagnostic studies and findings analyzed. Case was discussed with Dr. Yo Dos Santos who formulated the plan of care. This medical document was created using an electronic medical record system with [employer] dictation system. Although this document has been carefully reviewed, there might still be some phonetic and typographical errors. These areas are purely typographical due to imperfections of the software programs, and do not reflect any compromise in the patient's medical care. My Orders My Orders Orders - CAT ALEXIS NP Procedure Category Date Status Time Lorazepam Tablet PHA 01/26/25 In Process (Ativan Tablet) 11:30 Chest Portable XY 01/26/25 Resulted 11:43 Pt Request For Service PT 01/26/25 Logged 16:39 Convert To Saline NATHAN 01/27/25 In Process Lock When Ta 06:35 Carisoprodol Tablet PHA 01/27/25 In Process (Soma Tablet) 07:00 Oxycodone W/ Acet PHA 01/27/25 In Process 5/325mg Tab (Percocet 08:00 Hydralazine Injection PHA 01/27/25 Logged (Apresoline Inject 07:00 Levetiracetam Tablet PHA 01/27/25 Logged (Keppra Tablet) 10:00 Levothyroxine Tablet PHA 01/27/25 Logged (Synthroid Tablet) 10:00 (Nf) Felodipine PHA 01/27/25 Logged (Felodipine Er) 10:00 (Nf) Simvastatin PHA 01/27/25 Logged 10:00 Plan discussed with Plan discussed with: Patient Visit Coding Surgery Date of Service if different f: January 27, 2025 Billing Provider: CAT ALEXIS NP Surgery Visit Codes: NOT BILLABLE CAT ALEXIS NP January 27, 2025 07:01
--- NOTE | 2025-01-27 07:04 | DVHDS2 ---
ASSESSMENT ASSESSMENT Hospital Course The patient arrived for a elective spine surgery with Dr. DOS SANTOS. Surgery went as planned with no complications. After a short stay in the PACU patient was admitted to the hospital for postoperative care and pain management over the course of 2 postoperative days the patient was able to tolerate a diet, ambulate independently, the pain has been managed with oral analgesics. The surgical site is well-approximated with sutures, some residual drainage continues from drain insertion sites after removal, however it is manageable with daily wound care and dressing changes. Some improvement to preoperative symptoms of extremities, strength and motion. There is new post operative pain that is localized to the surgical site. The patient will follow-up with Dr. Dos Santos for wound check and suture check or staple removal. The patient may use [place] J collar for comfort and while mobilizing. You may shower and let the water run over your neck wound however you must pat it dry with sterile 4x4s gauze. Please do not use regular household towels to dry your incision this could increase risks of infection you not use a sterile gauze. Keep your incision covered when you are out of your house or when you are wearing clothing that rub on your incision. He will also do not want to have a seatbelt rubbing on your incision. If you are at home and you have clothing that does not contact your incision you may leave it open to air. You may have some residual drainage from the drain site for the next 2-3 days which is normal it should be a very light pink or marc color fluid. If it changes or becomes bright red please call 911. 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
[2025-01-27] MEDS: hydrALAZINE HCL 20 MG/ML VL IV ONE (08:30)
[2025-01-27] MEDS: CARISOPRODOL 350 MG TAB PO SCH (08:30)
[2025-01-27] MEDS: LEVOTHYROXINE SODIUM 25 MCG TAB PO SCH (08:30)
[2025-01-27 09:00] VITALS: BP 179/78; PULSE 84; RESP 20; TEMP 97.9; O2SAT 97
[2025-01-27 10:00] VITALS: O2SAT 95
[2025-01-27] MEDS ORDERED: hydrALAZINE HCL 20 MG/ML VL IV ONE (11:45)
[2025-01-27] MEDS: levETIRAcetam 500 MG TAB PO SCH (11:46)
[2025-01-27] MEDS ORDERED: CARI-579 PO (11:50)
[2025-01-27] MEDS ORDERED: PERCOT PO (11:50)
[2025-01-27] MEDS ORDERED: DOCU-265 PO (11:50)
[2025-01-27] MEDS: amLODIPine BESYLATE 5 MG TAB PO SCH (11:51)
--- NOTE | 2025-01-27 11:57 | DVHDS2 ---
Discharge Summary Date of Admission January 25, 2025 at 14:30 Date of Discharge: January 27, 2025 Admitting Diagnosis Cervical Degenerative Disk Disease and Spinal Stenosis with severe cord signal changes Causing incapacitating neck pain, myelopathy/ radiculopathy and progressive neurologic deficit Wounds: Left anterior neck wound well approximated with brittany, drain site is closed minimal drainage at this time, patient is aware that drain we will continue to drain marc colored fluid for the next 2-3 days Procedure: Cervical 3 to 4 anterior cervical discectomy with Cervical 3-4 foraminotomies and facetectomies to decompression the spinal canal and Cervical 4 nerve roots Cervical 4 to 5 anterior cervical discectomy with Cervical 4-5 foraminotomies and facetectomies to decompression the spinal canal and Cervical 5 nerve roots Cervical 3-5 anterior cervical Fusion Labs/Diagnostic Data: Laboratory Results Test 01/26/25 13:06 01/22/25 12:25 Hepatitis B Surface Antigen Negative (Negative) White Blood Count 6.6 10^3/uL (4.4-10.8) Red Blood Count 4.83 10^6/uL (4.0-5.20) Hemoglobin 14.7 g/dL (12.2-16.2) Hematocrit 43.0 % (36.0-46.0) Mean Corpuscular Volume 89.0 fL (80.0-100.0) Mean Corpuscular Hemoglobin 30.4 pg (28.0-32.0) Mean Corpuscular Hemoglobin Concent 34.2 g/dL (32.0-36.0) Red Cell Distribution Width 14.3 % (11.8-14.3) Platelet Count 193 10^3/uL (140-450) Mean Platelet Volume 7.7 fL (6.9-10.8) Neutrophils (%) (Auto) 66.3 % (37.0-80.0) Lymphocytes (%) (Auto) 24.6 % (10.0-50.0) Monocytes (%) (Auto) 8.2 % (0.0-12.0) Eosinophils (%) (Auto) 0.3 % (0.0-7.0) Basophils (%) (Auto) 0.6 % (0.0-2.0) Neutrophils # (Auto) 4.4 10 ^3/uL (1.6-8.6) Lymphocytes # (Auto) 1.6 10 ^3/uL (0.4-5.4) Monocytes # (Auto) 0.5 10 ^3/uL (0-1.3) Eosinophils # (Auto) 0 10 ^3/uL (0-0.8) Basophils # (Auto) 0 10 ^3/uL (0-0.2) Nucleated Red Blood Cells 0.0 % Prothrombin Time 10.9 sec (9.3-11.8) Prothrombin Time INR 1.03 (0.9-1.15) Activated Partial Thromboplast Time 26.3 SEC (24.5-34.5) Urine Color Yellow (Yellow) Urine Clarity Turbid (Clear) Urine pH 5.5 (5.0-9.0) Urine Specific [place] 1.022 (1.001-1.035) Urine Protein Trace (Negative) Urine Ketones Negative (Negative) Urine Blood 2+ /uL (Negative) Urine Nitrite Negative (Negative) Urine Bilirubin Negative (Negative) Urine Urobilinogen Normal mg/dL (Negative) Urine Leukocyte Esterase Negative /uL (Negative) Urine RBC 17 /hpf (0 - 4) Urine Microscopic WBC 1 /HPF (0-5) Urine Squamous Epithelial Cells Few /hpf (<5) Urine Calcium Oxalate Crystals Few (None Seen) Urine Bacteria None seen /hpf (None Seen) Urine Mucus Few (None Seen) Urine Glucose Normal mg/dL (Normal) Sodium Level 141 mmol/L (136-145) Potassium Level 4.2 mmol/L (3.5-5.1) Chloride Level 106 mmol/L (98-107) Carbon Dioxide Level 29 mmol/L (20-31) Anion Gap 6 (5-15) Blood Urea Nitrogen 11 mg/dL (9-23) Creatinine 0.90 mg/dL (0.550-1.02) Glomerular Filtration Rate Calc 73 mL/min (>90) BUN/Creatinine Ratio 12.2 (10.0-20.0) Serum Glucose 97 mg/dL (74-106) Calcium Level 10.1 mg/dL (8.7-10.4) Total Bilirubin 0.5 mg/dL (0.2-1.0) Aspartate Amino Transferase (AST) 18 U/L (13-40) Alanine Aminotransferase (ALT) 10 U/L (7-40) Alkaline Phosphatase 66 U/L (46-116) Total Protein 7.2 g/dL (5.7-8.2) Albumin 4.8 g/dL (3.2-4.8) Other Laboratory Tests 01/22/25 12:25 Brief Hx & Hospital Course: The patient arrived for a elective spine surgery with Dr. DOS SANTOS. Surgery went as planned with no complications. After a short stay in the PACU patient was admitted to the hospital for postoperative care and pain management over the course of 2 postoperative days the patient was able to tolerate a diet, ambulate independently, the pain has been managed with oral analgesics. The surgical site is well-approximated with sutures, some residual drainage continues from drain insertion sites after removal, however it is manageable with daily wound care and dressing changes. Some improvement to preoperative symptoms of extremities, strength and motion. There is new post operative pain that is localized to the surgical site. The patient will follow-up with Dr. Dos Santos for wound check and suture check or staple removal. The patient may use [place] J collar for comfort and while mobilizing. You may shower and let the water run over your neck wound however you must pat it dry with sterile 4x4s gauze. Please do not use regular household towels to dry your incision this could increase risks of infection you not use a sterile gauze. Keep your incision covered when you are out of your house or when you are wearing clothing that rub on your incision. He will also do not want to have a seatbelt rubbing on your incision. If you are at home and you have clothing that does not contact your incision you may leave it open to air. You may have some residual drainage from the drain site for the next 2-3 days which is normal it should be a very light pink or marc color fluid. If it changes or becomes bright red please call 911. 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 walk multiple times during the day, do not lay around in bed most of the day, you need to be able to get up and move. Slowly move her head as normal do not avoid movement and will impede her healing Follow Up/Referral: Please keep your scheduled follow up appointment in two weeks if you have any questions Call [phone] to verify your appointment [id number] [facility], [address], [place] [id number] Medications: Medications for pain, muscle relaxers and stool softener sent to your pharmacy of choice New Medications: Carisoprodol (Carisoprodol) 350 Mg Tab 350 MG PO TID for 30 Days, #90 TAB Docusate Sodium (Docusate Sodium) 100 Mg Cap 100 MG PO BID for 15 Days, #30 CAP Oxycodone W/ Acetaminophen (Percocet 5/325MG) 1 Tab Tb 2 TAB PO Q6HR PRN for 10 Days, #80 TAB Continued Medications: Cholecalciferol (Vitamin D3) 2,000 Unit Tab 5000 UNIT OR DAILY, TAB Escitalopram Oxalate (Escitalopram Oxalate) 10 Mg Tab 10 MG PO HS, TAB Felodipine (Felodipine ER) 5 Mg Tab 10 MG GT DAILY, TAB Levetiracetam (Keppra Tablet) 500 Mg Tb 750 MG PO BID, TAB Levothyroxine Sodium (Levothyroxine Sodium) 25 Mcg Tab 25 MCG PO DAILY, TAB Lorazepam (Lorazepam) 1 Mg Tab 0.5 MG PO BID, TAB Lorazepam (Ativan) 0.5 Mg Tab 1 TAB PO DAILY, #30 TAB Propranolol Hcl (Inderal La) 60 Mg Cap 10 MG PO DAILY, CAP Simvastatin (Simvastatin) 40 Mg Tab 40 MG PO DAILY, TAB Trazodone Hcl (Trazodone Hcl) 100 Mg Tab 50 MG PO HS, TAB Care Plan: You may shower and let the water run over your neck wound however you must pat it dry with sterile 4x4s gauze. Please do not use regular household towels. Keep your incision covered when you are out of your house or when you are wearing clothing that rub on your incision. He will also do not want to have a seatbelt rubbing on your incision. If you are at home and you have clothing that does not contact your incision you may leave it open to air. You may have some residual drainage from the drain site for the next 2-3 days which is normal it should be a very light pink or marc color fluid. If it changes or becomes bright red please call 911. 20 Discharge Statement: "Patient was advised to return to the ER or call 911 if any headaches, dizziness, shortness of breath, chest pain, abdominal pain, bleeding, fevers, or worsening of medical condition. Patient was counseled about treatment plan, medications, possible side effects, patientverbalized understanding. All questions were answered to the best of my ability. This discharge took greater then 30 minutes in planning, reviewing documentation, counseling the patient, and discussing with other team members." ASSESSMENT ASSESSMENT Hospital Course The patient arrived for a elective spine surgery with Dr. DOS SANTOS. Surgery went as planned with no complications. After a short stay in the PACU patient was admitted to the hospital for postoperative care and pain management over the course of 2 postoperative days the patient was able to tolerate a diet, ambulate independently, the pain has been managed with oral analgesics. The surgical site is well-approximated with sutures, some residual drainage continues from drain insertion sites after removal, however it is manageable with daily wound care and dressing changes. Some improvement to preoperative symptoms of extremities, strength and motion. There is new post operative pain that is localized to the surgical site. The patient will follow-up with Dr. Dos Santos for wound check and suture check or staple removal. The patient may use [place] J collar for comfort and while mobilizing. You may shower and let the water run over your neck wound however you must pat it dry with sterile 4x4s gauze. Please do not use regular household towels to dry your incision this could increase risks of infection you not use a sterile gauze. Keep your incision covered when you are out of your house or when you are wearing clothing that rub on your incision. He will also do not want to have a seatbelt rubbing on your incision. If you are at home and you have clothing that does not contact your incision you may leave it open to air. You may have some residual drainage from the drain site for the next 2-3 days which is normal it should be a very light pink or marc color fluid. If it changes or becomes bright red please call 911. 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
[2025-01-27 13:00] VITALS: BP 132/93; PULSE 98; RESP 20; TEMP 98.4; O2SAT 95
[2025-01-27] MEDS: OXYCODONE W/ ACETAMINOPHEN 5/325MG TABLET PO PRN (13:11)
[2025-01-27 15:04] VITALS: BP 151/90; PULSE 89; RESP 18; TEMP 36.9; O2SAT 95
[2025-01-27] MEDS ORDERED: ATORVASTATIN 20 MG TAB PO SCH (22:00)
== END 2025-01-27 15:40 | disposition home health service (06) | DRG 472 ==
LOC: SUR 08:35 → OVERFLOW 14:30 → EAST 18:28
PROVIDERS: ADMIT Orthopaedic Surgery; ATTEND Orthopaedic Surgery
PROC: 01N10ZZ Release Cervical Nerve, Open Approach (ICD-10-PCS; 2025-01-25)
PROC: 00NW0ZZ Release Cervical Spinal Cord, Open Approach (ICD-10-PCS; 2025-01-25)
PROC: 0RB30ZZ Excision of Cervical Vertebral Disc, Open Approach (ICD-10-PCS; 2025-01-25)
PROC: 0RG20A0 Fusion of 2 or more Cervical Vertebral Joints with Interbody Fusion Device, Anterior Approach, Anterior Column, Open Approach (ICD-10-PCS; principal; 2025-01-25 11:33)
DX: M48.02 Spinal stenosis, cervical region (principal); M50.01 Cervical disc disorder with myelopathy, high cervical region; M50.021 Cervical disc disorder at C4-C5 level with myelopathy; M50.121 Cervical disc disorder at C4-C5 level with radiculopathy; K59.9 Functional intestinal disorder, unspecified; G89.18 Other acute postprocedural pain; F41.9 Anxiety disorder, unspecified; I10 Essential (primary) hypertension; T40.605A Adverse effect of unspecified narcotics, initial encounter; Z79.899 Other long term (current) drug therapy; Y92.89 Other specified places as the place of occurrence of the external cause
CPT/HCPCS: 36415; 71045; 72040; 76000; 80053; 81001; 85025; 85610; 85730; 86850; 86900; 86901; 87340; 94640; 97110; 97116; 97163; 97530; G0378; J0131; J1100; J1885; J1956; J2250; J2405; J2704; J7042

== ENCOUNTER 2025-03-06 15:34 | Emergency (ER) | payer MEDICARE, MEDICAID ==
[~2025-03-06] VITALS: Ht 162.6 cm; Wt 77.4 kg
[~2025-03-06 15:34] MED LIST changes: +CARI-579 PO; +DOCU-265 PO; +LORA-655 PO; +PERCOT PO
--- NOTE | 2025-03-06 16:16 | ED.PDOC ---
SOB-HPI HPI Comments 59 y/o F, with PMHx of HTN, HLD, epilepsy, paranoia, and anxiety presents to the ED for CC of cough. Patient reports, smoking marijuana today (03/06/25) following she began to experience a cough with red/brown phlegm. Patient relays, x2 episodes prior to arrival. Patient endorses, having a cervical procedure x1 month ago and is unaware if symptoms may be related. Patient denies nausea, vomiting, hematemesis, abdominal pain, or fever. No other symptoms or modifying factors present at this time. 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 Family History Family History: Unknown Social History Smoker: Cigarettes Alcohol: Denies ETOH Use Drugs: Marijuana Lives In: Home Constitutional: denies: chills, diaphoresis, fatigue, fever, malaise, sweats, weakness, others EENTM: denies: blurred vision, double vision, ear bleeding, ear discharge, ear drainage, ear pain, ear ringing, eye pain, eye redness, hearing loss, mouth pain, mouth swelling, nasal discharge, nose bleeding, nose congestion, nose pain, photophobia, tearing, throat pain, throat swelling, voice changes, others Respiratory: reports: cough; denies: hemoptysis, orthopnea, SOB at rest, shortness of breath, SOB with excertion, stridor, wheezing, others Cardiovascular: denies: chest pain, dizzy spells, diaphoresis, Dyspnea on exert ion, edema, irregular heart beat, left arm pain, lightheadedness, palpitations, PND, syncope, others Gastrointestinal: denies: abdomen distended, abdominal pain, blood streaked bowels, constipated, diarrhea, dysphagia, difficulty swallowing, hematemesis, melena, nausea, poor appetite, poor fluid intake, rectal bleeding, rectal pain, vomiting, others Genitourinary: denies: abnormal vagina bleeding, burning, dyspareunia, dysuria, flank pain, frequency, hematuria, incontinence, pain, , vagina discharge, urgency, others Neurological: denies: dizziness, fainting, headache, left sided numbness, left sided weakness, numbness, paresthesia, pre-existing deficit, right sided numbness, right sided weakness, seizure, speech problems, tingling, tremors, weakness, others Musculoskeletal: denies: back pain, gout, joint pain, joint swelling, muscle pain, muscle stiffness, neck pain, others Integumetry: denies: bruises, change in color, change in hair/nails, dryness, laceration, lesions, lumps, rash, wounds, others Allergic/Immunocompromised: denies: Difficulty Healing, Frequent Infections, Hives, Itching, others Hematologic/Lymphatic: denies: anemia, blood clots, easy bleeding, easy bruising, swollen glands, others Endocrine: denies: excessive hunger, excessive sweating, excessive thirst, excessive urination, flushing, intolerance to cold, intolerance to heat, unexplained weight gain, unexplained weight loss, others Psychiatric: denies: anxiety, bipolar disorder, depression, hopeless, panic disorder, schizophrenia, sleepless, suicidal, others All Other Systems: Reviewed and Negative Physical Exam General Appearance: No Apparent Distress, Normal HEENT: Normal ENT Inspection, Pharynx Normal Neck: Full Range of Motion, Non-Tender, Normal, Normal Inspection Respiratory: Chest Non-Tender, Lungs Clear, No Accessory Muscle Use, No Respiratory Distress, Normal Breath Sounds Cardiovascular: No Edema, No Murmur, No Gallop, Normal Peripheral Pulses, Regular Rate/Rhythm Breast Exam: Deferred Gastrointestinal: No Organomegaly, Non Tender, No Pulsatile Mass, Normal Bowel Sounds, Soft Genitalia: Deferred Pelvic: Deferred Rectal: Deferred Extremities: No calf tenderness, Normal capillary refill, Normal inspection, Normal range of motion, Non-tender, No pedal edema Musculoskeletal : Apperance: Normal Neurologic: Alert, full stack net developer II-XII nml as Tested, No Motor Deficits, Normal Affect, Normal Mood, No Sensory Deficits Cerebellar Function: Normal Reflexes: Normal Skin: Dry, Normal Color, Warm, Other (4cm postsurgical site to neck) Lymphatic: No Adenopathy Was a procedure done? Was a procedure done?: No Differential Dx Differential Diagnosis: Anxiety, Bronchitis, Panic Attack, Pneumonia, Sinusitis, Pharyngitis, URI X-Ray, Labs, Meds, VS Vital Signs Date Time Temp Pulse Resp B/P (MAP) Pulse Ox O2 Delivery O2 Flow Rate FiO2 03/06/25 15:47 98.4 92 20 146/88 (107) 95 98.4 X-Ray, Labs, Meds, VS Comment Imaging: X-rays and CT scans were reviewed and interpreted by this provider, imaging shows no fractures and no pathological disease. Pending radiology review. Laboratory: Labs reviewed and interpreted by this provider. No significant abnormalities noted. Patient has prior medical visits reviewed. Med reconciliation performed Vital signs reviewed Time of 1ST Reevaluation: 16:30 Reevaluation 1ST: Unchanged Patient Education/Counseling: Diagnosis, Treatment, Need For Follow Up (Follow up with PCP in 2-3 days. Return to emergency room if symptoms worsen.) Family Education/Counseling: No Family Present Departure 1 Departure Time of Disposition: 16:39 Impression: Primary Impression: Cough Qualified Codes: R05.1 - Acute cough Disposition: 01 HOME / SELF CARE / HOMELESS Condition: Fair Discharged With: Self Critical Care Note Critical Care Time?: No Stability Stability form required: No Heart Score Heart Score: Heart Score Response (Comments) Value History N/A 0 EKG N/A 0 Age N/A 0 Risk Factors N/A 0 Troponin N/A 0 Total 0 I personally scribed for DAREN CINTRON ([email or web address]) on 03/06/25 at 16:16. Electronically submitted by Paola Lopez ([email or web address]). DAREN CINTRON Mar 06, 2025 16:16
--- NOTE | 2025-03-06 16:36 | DVH ---
CHEST RADIOGRAPH Indication: COUGHING UP BLOOD Technique: Single frontal view of the chest was obtained COMPARISON: XY CHEST PORTABLE on DOS: 01/26/25 FINDINGS: Lines and Tubes: None Lungs: Clear Pleura: No effusion. No pneumothorax. Cardiomediastinal contours: Unremarkable Bones: Unremarkable IMPRESSION: 1. No acute disease.
[2025-03-06 16:59] VITALS: BP 146/88; PULSE 92; RESP 20; TEMP 98.4; O2SAT 95
== END 2025-03-06 17:01 | disposition home or self-care (01) ==
LOC: ER 15:42
DX: R05.9 Cough, unspecified (principal); E78.5 Hyperlipidemia, unspecified; I10 Essential (primary) hypertension; F17.210 Nicotine dependence, cigarettes, uncomplicated
CPT/HCPCS: 71045